=== PATIENT | female | born 1980 | race Caucasian/White ===

== ENCOUNTER 2017-09-15 21:11 | Emergency (ER) | payer SELFPAY ==
[~2017-09-15] VITALS: Ht 154.9 cm; Wt 72.6 kg
[2017-09-15 21:20] VITALS: BP 117/78
--- NOTE | 2017-09-15 21:40 | NUR ---
DR. DIAZ AWARE OF RESULT URINE DIPSTICK
[2017-09-15 22:06] LABS: ANION GAP 10.9 (8-16); CREATININE 0.9 mg/dL (0.6-1.3); POTASSIUM 3.9 mmol/L (3.5-5.1)
--- NOTE | 2017-09-15 22:11 | NUR ---
Pt taken to bed 7.
[2017-09-15 22:12] LABS: ALBUMIN 3.9 g/dL (3.4-5.0); TOTAL BILIRUBIN 0.5 mg/dL (0.0-1.0)
--- NOTE | 2017-09-15 22:20 | NUR ---
37/F CAME IN W C/O 8 SHARP EPIGASTRIC PAIN, CONSTANT,GRADUALLY WORSENING X 1 WEEK. PT REPORTS VOMITING 4X DAILY X 1 WEEK, DENIES NAUSEA AT THIS TIME. C/O DECREASED APPETITE BUT DENIES FEVER, DIARRHEA, DYSURIA, DENIES SOB/CP. BS ACTIVE X 4 QUDRANTS, C/O TENDERNESS TO EPIGASTRIC. ER MADE AWARE OF STATUS
[2017-09-15 22:26] LABS: BASOPHILS # (AUTO) 0.4 K/uL (0.00-0.22); BASOPHILS % (AUTO) 4.6 % (0.0-2.0); EOSINOPHILS # (AUTO) 0.1 K/uL (0-0.4); EOSINOPHILS % (AUTO) 1.1 % (0.0-4.0); HEMATOCRIT 40.9 % (36-48); HEMOGLOBIN 13.8 g/dL (12.0-16.0); LYMPHOCYTES # (AUTO) 1.9 K/uL (2.5-16.5); LYMPHOCYTES % (AUTO) 21.9 % (20.5-51.1); MEAN CORPUSCULAR HEMOGLOBIN 31 pg (27-31); MEAN CORPUSCULAR HGB CONC 34 g/dL (33-37); MEAN CORPUSCULAR VOLUME 93 fL (80-94); MONOCYTES # (AUTO) 0.7 K/uL (0.8-1.0); MONOCYTES % (AUTO) 7.8 % (1.7-9.3); NEUTROPHILS # (AUTO) 5.4 K/uL (1.8-7.7); NEUTROPHILS % (AUTO) 64.6 % (42.2-75.2); PLATELET COUNT (AUTO) 257 K/uL (140-450); RED BLOOD CELL COUNT(AUTO) 4.42 MIL/uL (4.20-5.40); RED CELL DISTRIBUTION WIDTH 12.4 % (11.6-13.7); WHITE BLOOD COUNT (AUTO) 8.5 K/uL (4.8-10.8)
--- NOTE | 2017-09-15 23:00 | NUR ---
Patient being evaluated by Dr. Perez at bedside.
[2017-09-15] MEDS ORDERED: KETOROLAC 60 MG/2 ML VIAL IM ONE (23:05)
[2017-09-15] MEDS ORDERED: ONDANSETRON 4 MG ODT PO ONE (23:05)
--- NOTE | 2017-09-15 23:25 | NUR ---
Patient discharged with v/s stable. Written and verbal after care instructions given and explained. Patient alert, oriented and verbalized understanding of instructions. Ambulatory with steady gait. All questions addressed prior to discharge. ID band removed. Patient advised to follow up with PMD. Rx of CIPRO 500MG ONE TAB 2 TIMES A DAY, DONT TAKE WITH ANTACIDS X 3 DAYS,MOTRIN 800MG ONE TAB 3 TIMES A DAY PO, PRILOSEC 40MG DR, 1 CAP ONCE A DAY PO, ZOFRAN 8MG ONE TAB EVERY 8 HOURS PRN N/V given. Patient educated on indication of medication including possible reaction and side effects. Opportunity to ask questions provided and answered.
[2017-09-15 23:29] VITALS: BP 133/78
== END 2017-09-15 23:25 | disposition home or self-care (01) ==
LOC: MED 21:11
DX: R10.13 Epigastric pain (principal); R11.2 Nausea with vomiting, unspecified; R19.7 Diarrhea, unspecified; Z90.89 Acquired absence of other organs
CPT/HCPCS: 36415; 80053; 81002; 81025; 83690; 85025; 96372; 99284; J1885; S0119

== ENCOUNTER 2018-02-24 11:29 | Emergency (ER) | payer SELFPAY ==
[~2018-02-24] VITALS: Ht 154.9 cm; Wt 74.6 kg
[2018-02-24 11:35] VITALS: BP 110/70
--- NOTE | 2018-02-24 11:39 | NUR ---
PATIENT TAKEN TO BED 12
--- NOTE | 2018-02-24 11:52 | NUR ---
PT COMES TO ER WITH SUDDEN POPPING 7/10 PAIN TO RUQ SINCE THIS AM AT 0200 RADIATES TO RT HIP AREA. PT REPORTS SHE IS 3 MONTHS PREGANT AND CAN NOT FEEL BABY TODAY. DENIES ANY VAG BLEED/ NO DYSURIA, NO FEVERS/CHILLS. ABD SOFT, NON TENDER TO PALPATION. +BS X 4 QUDAS, LAST BM YESTERDAY.
--- NOTE | 2018-02-24 11:56 | NUR ---
LAB AT BEDSIDE,URINE COLLECTED AND GIVEN TO PERSONNEL.
[2018-02-24 12:11] LABS: APPEARANCE,URINE CLEAR (CLEAR); BILIRUBIN,URINE 1+ (NEGATIVE); BLOOD, URINE NEGATIVE (NEGATIVE); COLOR,URINE YELLOW (YELLOW); LEUKOCYTE ESTERASE ,URINE NEGATIVE (NEGATIVE); NITRITE, URINE NEGATIVE (NEGATIVE); PH,URINE 6.5 (5.0-9.0); UGLUCOSE NEGATIVE (NEGATIVE)
[2018-02-24 12:15] LABS: BASOPHILS % (AUTO) 0.5 % (0.0-2.0); EOSINOPHILS % (AUTO) 0.5 % (0.0-4.0); HEMATOCRIT 38.6 % (36-48); HEMOGLOBIN 13.1 g/dL (12.0-16.0); LYMPHOCYTES # (AUTO) 1.3 K/uL (2.5-16.5); MEAN CORPUSCULAR HEMOGLOBIN 32 pg (27-31); MEAN CORPUSCULAR HGB CONC 34 g/dL (33-37); MEAN CORPUSCULAR VOLUME 92.7 fL (80-94); MONOCYTES # (AUTO) 0.3 K/uL (0.8-1.0); MONOCYTES % (AUTO) 5.8 % (1.7-9.3); NEUTROPHILS # (AUTO) 4.3 K/uL (1.8-7.7); NEUTROPHILS % (AUTO) 71.2 % (42.2-75.2); PLATELET COUNT (AUTO) 253 K/uL (140-450); RED BLOOD CELL COUNT(AUTO) 4.17 MIL/uL (4.20-5.40); RED CELL DISTRIBUTION WIDTH 13.2 % (11.6-13.7)
[2018-02-24 12:19] LABS: RBC,URINE 0-5 (RARE) /HPF (0-5); WBC,URINE 0-5 (RARE) /HPF (0-5)
[2018-02-24] MEDS ORDERED: ACETAMINOPHEN EXTRA STRENGTH 500 MG TAB PO ONE (12:25)
[2018-02-24 13:03] LABS: POTASSIUM 3.4 mmol/L (3.5-5.1)
[2018-02-24 13:04] LABS: ANION GAP 13.4 (8-16); CREATININE 0.7 mg/dL (0.6-1.3); TOTAL BILIRUBIN 0.4 mg/dL (0.0-1.0)
[2018-02-24 13:05] LABS: ALBUMIN 3.1 g/dL (3.4-5.0)
[2018-02-24 13:27] VITALS: BP 113/84
--- NOTE | 2018-02-24 13:30 | NUR ---
Patient discharged with v/s stable. Written and verbal after care instructions given and explained. Patient verbalized understanding. Ambulatory with steady gait. All questions addressed prior to discharge. Advised to follow up with PMD.
== END 2018-02-24 13:30 | disposition home or self-care (01) ==
LOC: MED 11:29
DX: O26.891 Other specified pregnancy related conditions, first trimester (principal); R10.30 Lower abdominal pain, unspecified
CPT/HCPCS: 36415; 76801; 80053; 81001; 84702; 85025; 86900; 86901; 99285; Q0092

== ENCOUNTER 2019-12-05 21:40 | Observation (INO) | payer MEDICAID ==
[~2019-12-05] VITALS: Ht 154.9 cm; Wt 84.4 kg
[2019-12-05] MEDS ORDERED: LACTATED RINGERS 1,000 ML IV SCH (22:30)
[2019-12-05] MEDS ORDERED: ONDANSETRON 4 MG/2 ML VIAL ONE (22:58)
[2019-12-05 23:35] LABS: BASOPHILS % (AUTO) 0.6 % (0.0-2.0); EOSINOPHILS # (AUTO) 0.1 K/uL (0-0.4); HEMATOCRIT 34.8 % (36-48); HEMOGLOBIN 11.9 g/dL (12.0-16.0); LYMPHOCYTES # (AUTO) 2.2 K/uL (2.5-16.5); LYMPHOCYTES % (AUTO) 26.5 % (20.5-51.1); MEAN CORPUSCULAR HEMOGLOBIN 32 pg (27-31); MEAN CORPUSCULAR HGB CONC 34 g/dL (33-37); MEAN CORPUSCULAR VOLUME 93.3 fL (80-94); MONOCYTES # (AUTO) 0.6 K/uL (0.8-1.0); MONOCYTES % (AUTO) 7.2 % (1.7-9.3); NEUTROPHILS # (AUTO) 5.3 K/uL (1.8-7.7); NEUTROPHILS % (AUTO) 64.7 % (42.2-75.2); PLATELET COUNT (AUTO) 245 K/uL (140-450); RED BLOOD CELL COUNT(AUTO) 3.73 MIL/uL (4.20-5.40); RED CELL DISTRIBUTION WIDTH 13.8 % (11.6-13.7); WHITE BLOOD COUNT (AUTO) 8.2 K/uL (4.8-10.8)
[2019-12-05] MEDS ORDERED: METOCLOPRAMIDE 10 MG/2 ML INJ VIAL ONE (23:38)
[2019-12-05 23:52] LABS: ALBUMIN 2.6 g/dL (3.4-5.0); CARBON DIOXIDE 25.3 mmol/L (21-32); CREATININE 0.7 mg/dL (0.6-1.3); TOTAL BILIRUBIN 0.2 mg/dL (0.0-1.0)
[2019-12-05 23:53] LABS: POTASSIUM 4.3 mmol/L (3.5-5.1)
[2019-12-05] MEDS ORDERED: PREN-380 PO (23:59)
[2019-12-06] MEDS ORDERED: METOCLOPRAMIDE 10 MG/2 ML INJ VIAL IVP SCH
[2019-12-06] MEDS ORDERED: ONDANSETRON 4 MG/2 ML VIAL IVP SCH
[2019-12-06] MEDS ORDERED: PROMETHAZINE 25 MG/ML VIAL IVP SCH
[2019-12-06 00:02] VITALS: BP 117/73
[2019-12-06 00:08] LABS: APPEARANCE,URINE SL CLOUDY (CLEAR); BILIRUBIN,URINE NEGATIVE (NEGATIVE); BLOOD, URINE NEGATIVE (NEGATIVE); COLOR,URINE YELLOW (YELLOW); LEUKOCYTE ESTERASE ,URINE NEGATIVE (NEGATIVE); NITRITE, URINE NEGATIVE (NEGATIVE); UGLUCOSE NEGATIVE (NEGATIVE)
== END 2019-12-06 01:00 | disposition home or self-care (01) ==
LOC: MLD 21:40
PROVIDERS: ADMIT Obstetrics & Gynecology; ATTEND Obstetrics & Gynecology
DX: O62.9 Abnormality of forces of labor, unspecified (principal); Z3A.24 24 weeks gestation of pregnancy
CPT/HCPCS: 36415; 80053; 81000; 81003; 85025; 96374; G0378; J2405; J2550; J2765; J7120

== ENCOUNTER 2022-04-08 22:25 | Emergency (ER) | payer MEDICAID ==
[~2022-04-08] VITALS: Ht 162.6 cm; Wt 78.5 kg
[~2022-04-08 22:25] MED LIST: PREN-380 PO
[2022-04-08 22:32] VITALS: BP 138/72
--- NOTE | 2022-04-08 23:14 | NUR ---
PT TAKEN BED 11
--- NOTE | 2022-04-08 23:19 | NUR ---
42 Y/O FEMALE BIBS FROM HOME, C/O PAIN TO L PINKY FINGER X1 DAY. PT STATES SHE CLOSED THE CAR DOOR ON HER FINGER. PT STATES THE FINGER FEELS NUMB , + BRUISING, INCAPABLE OF STRAIGHTENING THE FINGER. 6/10 PAIN AND WORSENS WITH PALPATION. AMBULATORY W/O ASSISTANCE, UNLABORED BREATHING. SEATED IN BED WITH HOB RAISED, BED IN LOWEST SETTING, AND RAIL UP X1. NO PMH/RX NKA
--- NOTE | 2022-04-08 23:34 | NUR ---
PT RETURNED FROM XRAY VIA
[2022-04-09] MEDS ORDERED: IBUP-2213 PO (00:12)
[2022-04-09] MEDS ORDERED: ACET-8386 PO (00:12)
[2022-04-09 00:47] VITALS: BP 132/70
--- NOTE | 2022-04-09 00:50 | NUR ---
Patient discharged with v/s stable. Written and verbal after care instructions given and explained. Patient alert, oriented and verbalized understanding of instructions. Ambulatory with steady gait. All questions addressed prior to discharge. ID band removed. Patient advised to follow up with PMD. Rx of NORCO (5-325) AND IBUPROFEN given. Patient educated on indication of medication including possible reaction and side effects. Opportunity to ask questions provided and answered. A/OX4, VSS, UNLABORED BREATHING, AMBULATORY, AND CALM DEMEANOR.
== END 2022-04-09 00:46 | disposition home or self-care (01) ==
LOC: MED 22:25
DX: S62.637A Displaced fracture of distal phalanx of left little finger, initial encounter for closed fracture (principal); Z98.890 Other specified postprocedural states; Z79.899 Other long term (current) drug therapy; Z79.1 Long term (current) use of non-steroidal anti-inflammatories (NSAID); Z79.891 Long term (current) use of opiate analgesic; W22.8XXA Striking against or struck by other objects, initial encounter; Y92.89 Other specified places as the place of occurrence of the external cause; Y93.89 Activity, other specified; Y99.8 Other external cause status
CPT/HCPCS: 73140; 99283